=== PATIENT | female | born 1960 | race Caucasian/White ===

== ENCOUNTER 2017-06-02 11:22 | Day surgery (SDC) | payer BC ==
[~2017-06-02] VITALS: Ht 170.2 cm; Wt 96.8 kg
[~2017-06-02 11:22] MED LIST: ACYC400 PO; ALBU90OI61 INH; AMIT10; ASPI325 PO; ATEN50 PO; ATOR10 PO; Aspir-Low81 MG PO; CEPH500 PO; CITA20 PO; DIAZ5 PO; DIPASPER PO; DONE10 PO; DONE5 PO; DOXY100 PO; DULO30 PO; Dyazide 37.5-21 EACH PO; ESCI10 PO; FLUO20; GABA300T24; HYDCHL25 PO; HYDMOR2 PO; LEVSOD100 PO; LEVSOD200 PO; LEVSOD75; LIDO5TP TOP; LIDOCAINE1 EACH TOP; METO10 PO; ONDA4 PO; ONDA4ODT; OXYACE5T PO; PANT40 PO; PREG100; PREG25 PO; PROACE100 PO; PROAIR RESPICL90 MCG; PROC10 PO; PROM25 PO; RXTRAM50 PO; SPIHYD50 PO; Synthroid/Levo0.2 MG; TRAM50 PO; TRIHYD5075; Toprol Xl50 MG PO; Voltaren100 GM TP; Zofran Odt8 MG PO
== END 2017-06-02 13:54 | disposition home or self-care (01) ==
LOC: ORSCSDS 11:22
PROVIDERS: Internal Medicine Gastroenterology
PROC: 0DBN8ZX Excision of Sigmoid Colon, Via Natural or Artificial Opening Endoscopic, Diagnostic (ICD-10-PCS; principal; 2017-06-02 12:45)
PROC: 0DB88ZX Excision of Small Intestine, Via Natural or Artificial Opening Endoscopic, Diagnostic (ICD-10-PCS; principal; 2017-06-02 12:45)
PROC: 0DB68ZX Excision of Stomach, Via Natural or Artificial Opening Endoscopic, Diagnostic (ICD-10-PCS; principal; 2017-06-02 12:45)
DX: R10.13 Epigastric pain (principal); K63.5 Polyp of colon; K64.4 Residual hemorrhoidal skin tags; E03.9 Hypothyroidism, unspecified; Z86.73 Personal history of transient ischemic attack (TIA), and cerebral infarction without residual deficits; J45.909 Unspecified asthma, uncomplicated; Z79.82 Long term (current) use of aspirin; Z87.891 Personal history of nicotine dependence; Z79.899 Other long term (current) drug therapy
CPT/HCPCS: 88305; 88342; J1980; J2405; J7120

== ENCOUNTER 2020-04-04 07:20 | Emergency (ER) | payer MEDICARE, OTHER ==
[~2020-04-04] VITALS: Ht 170.2 cm; Wt 89.4 kg
[2020-04-04] MEDS ORDERED: ACET500 PO (07:50)
[2020-04-04] MEDS ORDERED: PROG100 (07:50)
[2020-04-04] MEDS ORDERED: CLIMARA1 EACH (07:50)
[2020-04-04] MEDS ORDERED: ASPI325 PO (07:50)
[2020-04-04] MEDS ORDERED: LISI5 (07:50)
[2020-04-04] MEDS ORDERED: LEVSOD137 PO (07:51)
[2020-04-04 08:03] LABS: BASOPHILS ABSOLUTE AUTO 0.03 K/mm3 (0.00-0.23); BASOPHILS PERCENT AUTO 0 % (0-2); EOSINOPHILS ABSOLUTE AUTO 0.14 K/mm3 (0.00-0.68); EOSINOPHILS PERCENT AUTO 2 % (0-6); Hematocrit 39.6 % (33.0-51.0); Hemoglobin 12.5 g/dL (11.5-16.0); IMMATURE GRAN ABSOLUTE AUTO 0.01 K/mm3 (0.00-0.10); IMMATURE GRAN PERCENT AUTO 0 % (0-1); LYMPHOCYTES ABSOLUTE AUTO 1.43 K/mm3 (0.84-5.20); LYMPHOCYTES PERCENT AUTO 21 % (21-46); MONOCYTES PERCENT AUTO 6 % (4-13); Mean Corpuscular HGB 30.8 pg (26.0-34.0); Mean Corpuscular HGB Conc 31.6 g/dL (31.5-36.5); Mean Corpuscular Volume 98 fL (80-100); Mean Platelet Volume 9.6 fL (9.1-12.4); NEUTROPHILS ABSOLUTE AUTO 4.88 K/mm3 (1.96-9.15); NEUTROPHILS PERCENT AUTO 71 % (41-73); Platelet Count 225 K/mm3 (150-400); RDW Standard Deviation 43.4 fL (35.1-46.3); Red Blood Cell Count 4.06 M/mm3 (3.80-5.20); White Blood Cell Count 6.89 K/mm3 (4.00-11.30)
[2020-04-04 08:23] LABS: Alanine Aminotransfer (ALT/SGP 17 U/L (12-78); Albumin, Blood 3.5 g/dL (3.4-5.0); Albumin/Globulin Ratio 0.9 (0.8-1.8); Alk Phos 62 U/L (50-136); Anion Gap 8 mmol/L (6-16); Aspartate Aminotrans (AST/SGOT 11 U/L (12-37); Bilirubin, Total 0.5 mg/dL (0.1-1.0); Blood Urea Nitrogen 15 mg/dL (8-24); Bun/Creatinine Ratio 18.8 (12.0-20.0); CO2, Blood 24 mmol/L (21-32); Calcium, Blood 8.5 mg/dL (8.5-10.1); Chloride, Blood 106 mmol/L (98-108); Globulin, Blood 3.7 g/dL (2.2-4.0); Glomerular Filtration Rate >60 (60-); Glucose, Blood 111 mg/dL (70-99); Potassium, Blood 3.4 mmol/L (3.5-5.5); Sodium, Blood 138 mmol/L (136-145); Total Protein, Blood 7.2 g/dL (6.4-8.2)
[2020-04-04 08:30] LABS: C-REACTIVE PROTEIN, EXT RANGE 1.85 mg/dL (0.000-0.300)
[2020-04-04 08:38] LABS: Free Thyroxine 0.82 ng/dL (0.70-1.60)
[2020-04-04 08:40] LABS: Source, Urine Clean Catch
[2020-04-04 08:40] LABS: Thyroid Stimulating Hormone 5.78 uIU/mL (0.360-4.800)
[2020-04-04 08:59] LABS: Bilirubin, Urine Neg (Neg); Blood, Urine 4+ (Neg); Glucose Qualitative, Urine Neg (Neg); Ketones, Urine Neg (Neg); Leukocyte Esterase, Urine 1+ (Neg); Nitrite, Urine Neg (Neg); Protein, Urine 1+ (Neg); Urobilinogen, Urine NORM (Normal)
[2020-04-04 09:03] LABS: Appearance, Urine Clear (Clear); Color, Urine Yellow (P-Yellow)
[2020-04-04 09:05] LABS: Bacteria Mod /hpf; Squamous Epithelial Cells Mod /hpf (Few)
[2020-04-04 09:34] LABS: Influenza A, PCR Negative (NEGATIVE); Influenza B, PCR Negative (NEGATIVE); Resp Syncytial Virus, PCR Negative (NEGATIVE); SARS-Cov-2 (COVID-19) PCR, MMC Negative (NEGATIVE)
[2020-04-04] MEDS ORDERED: PRED20 PO (10:17)
== END 2020-04-04 10:38 | disposition home or self-care (01) ==
LOC: ER 07:20
PROVIDERS: Emergency Medicine
DX: I88.9 Nonspecific lymphadenitis, unspecified (principal); Z20.828 Contact with and (suspected) exposure to other viral communicable diseases; Z79.82 Long term (current) use of aspirin; Z79.899 Other long term (current) drug therapy; Z88.1 Allergy status to other antibiotic agents; Z88.5 Allergy status to narcotic agent; Z91.040 Latex allergy status; Z86.73 Personal history of transient ischemic attack (TIA), and cerebral infarction without residual deficits; Z87.891 Personal history of nicotine dependence
CPT/HCPCS: 0241U; 36415; 71260; 74177; 80053; 81001; 84439; 84443; 85025; 85651; 86140; 86308; 86644; 86645; 87086; 99283-25; Q9967

== ENCOUNTER 2020-04-05 15:10 | Emergency (ER) | payer MEDICARE, OTHER ==
[~2020-04-05] VITALS: Ht 170.2 cm; Wt 87.1 kg
[~2020-04-05 15:10] MED LIST changes: +ACET500 PO; +CLIMARA1 EACH; +LEVSOD137 PO; +LISI5; +PRED20 PO; +PROG100
[2020-04-09 11:11] LABS: B. HENSELAE IGG Negative titer (Neg:<1:320); B. HENSELAE IGM Negative titer (Neg:<1:100); B. QUINTANA IGG Negative titer (Neg:<1:320); B. QUINTANA IGM Negative titer (Neg:<1:100)
== END 2020-04-05 17:15 | disposition home or self-care (01) ==
LOC: ER 15:10
PROVIDERS: Emergency Medicine
DX: R59.0 Localized enlarged lymph nodes (principal); Z88.1 Allergy status to other antibiotic agents; Z88.5 Allergy status to narcotic agent; Z91.040 Latex allergy status; Z87.891 Personal history of nicotine dependence; Z86.73 Personal history of transient ischemic attack (TIA), and cerebral infarction without residual deficits; Z79.52 Long term (current) use of systemic steroids; Z79.899 Other long term (current) drug therapy; Z79.82 Long term (current) use of aspirin
CPT/HCPCS: 86611; 99283

== ENCOUNTER 2020-10-29 10:33 | Day surgery (SDC) | payer MEDICARE, OTHER ==
[~2020-10-29] VITALS: Ht 170.2 cm; Wt 92.6 kg
[~2020-10-29 10:33] MED LIST changes: +ASPIR 8181 MG PO; +DONEPEZIL HCL10 MG PO; +ESTRADIOL1 MG PO; +EUTHYROX137 MCG PO; +FURO20 PO; +KETO60I IM; +LIDO700A20 TOP; +Ondansetron Odt8 MG MM; +PROG100 PO; +Ventolin/Prove6.7 GM INH; +Voltaren100 GM; +ZOLP10 PO
[2020-10-29] MEDS ORDERED: ZOCOR20 MG PO (11:01)
[2020-10-29] MEDS ORDERED: ASPI325 PO (11:02)
== END 2020-10-29 13:35 | disposition home or self-care (01) ==
LOC: ORSCSDS 10:33 → ORD 12:00 → ORSCSDS 12:00
PROVIDERS: Obstetrics & Gynecology
PROC: 0UDB8ZX Extraction of Endometrium, Via Natural or Artificial Opening Endoscopic, Diagnostic (ICD-10-PCS; principal; 2020-10-29 12:00)
DX: N95.0 Postmenopausal bleeding (principal); N84.0 Polyp of corpus uteri; I10 Essential (primary) hypertension; E78.5 Hyperlipidemia, unspecified; J45.909 Unspecified asthma, uncomplicated; Z87.891 Personal history of nicotine dependence; E03.9 Hypothyroidism, unspecified; Z86.73 Personal history of transient ischemic attack (TIA), and cerebral infarction without residual deficits; Z79.899 Other long term (current) drug therapy
CPT/HCPCS: 88305; J0690; J1100; J2250; J2405; J2704; J3010; J7120

== ENCOUNTER → 2021-01-18 | Outpatient (CLI) | payer MEDICARE, OTHER ==
[~2021-01-18] MED LIST changes: +ZOCOR20 MG PO
== END | disposition home or self-care (01) ==
LOC: LAB SHORT 11:13 → LAB 11:13
DX: D22.39 Melanocytic nevi of other parts of face (principal)
CPT/HCPCS: 88305

== ENCOUNTER 2021-06-17 07:02 | Day surgery (SDC) | payer MEDICARE, BC ==
[2021-06-16 15:13] LABS: Bun/Creatinine Ratio 13.2 (12.0-20.0); Creatinine, Blood 1.14 mg/dL (0.40-1.00); Potassium, Blood 4.2 mmol/L (3.5-5.5)
[2021-06-16 15:35] LABS: BASOPHILS ABSOLUTE AUTO 0.06 K/mm3 (0.00-0.23); BASOPHILS PERCENT AUTO 1 % (0-2); EOSINOPHILS ABSOLUTE AUTO 0.16 K/mm3 (0.00-0.68); EOSINOPHILS PERCENT AUTO 3 % (0-6); Hematocrit 41.7 % (33.0-51.0); Hemoglobin 13.4 g/dL (11.5-16.0); IMMATURE GRAN ABSOLUTE AUTO 0.01 K/mm3 (0.00-0.10); IMMATURE GRAN PERCENT AUTO 0 % (0-1); LYMPHOCYTES PERCENT AUTO 28 % (21-46); MONOCYTES ABSOLUTE AUTO 0.47 K/mm3 (0.16-1.47); MONOCYTES PERCENT AUTO 8 % (4-13); Mean Corpuscular HGB 32.4 pg (26.0-34.0); Mean Corpuscular HGB Conc 32.1 g/dL (31.5-36.5); Mean Corpuscular Volume 101 fL (80-100); Mean Platelet Volume 10.3 fL (9.1-12.4); NEUTROPHILS ABSOLUTE AUTO 3.75 K/mm3 (1.96-9.15); NEUTROPHILS PERCENT AUTO 61 % (41-73); Platelet Count 273 K/mm3 (150-400); RDW Coefficient Variation 12.9 % (11.7-14.2); Red Blood Cell Count 4.13 M/mm3 (3.80-5.20); White Blood Cell Count 6.15 K/mm3 (4.00-11.30)
[~2021-06-17] VITALS: Ht 170.2 cm; Wt 93.6 kg
[~2021-06-17 07:02] MED LIST changes: +TRAZ100 PO
--- NOTE | 2021-06-17 12:25 | NUR ---
06/17/21 1225 Ruchi Ochoa GIVEN MO BY MARTA LUX AT 1210
--- NOTE | 2021-06-17 18:49 | NUR ---
SHIFT SUMMARY PT A&OX4, VSS/RA, SAVANNAH PO, PAIN MANAGED WITH PO DILAUDID & TORADOL, STOOD AT BEDSIDE, CRUZ W/STAT LOCK/OFF FLOOR. POD0, 3 DERMABOND, ABD BINDER, PAD DRY/INTACT. WILL REPORT TO ONCOMING NOC RN.
--- NOTE | 2021-06-18 04:11 | NUR ---
SHIFT SUMMARY PT IS POD#1 FOR TOTAL LAPRASCOPIC HYSTERECTOMY. CRUZ IN PLACE AND DRAINING TO GRAVITY, CLEAR YELLOW URINE. PLAN IS TO D/C CRUZ AND REMOVE VAGINAL PACKING AT 0500. IV IN LEFT FOREARM AND LEFT WRIST, INFUSING LR AT 125ML/HR. PT TOLERATING PO JELLO AND SIPPING FROM ROOT BEER. PT STATES SHE DOESN'T FEEL HUNGRY. DENIES NAUSEA/VOMITING. PAIN CONTROLLED WITH TORADOL AND DILAUDID PRN. PT GIVEN UNINTERRUPTED REST FOR 4-5 HOURS, WAS ABLE TO REST. THREE INCISIONS TO ABD, SECURED WITH DERMABOND, ABD BINDER IN PLACE. C/D/I. WILL CONTINUE TO MONITOR.
[2021-06-18 04:20] LABS: BASOPHILS ABSOLUTE AUTO 0.02 K/mm3 (0.00-0.23); BASOPHILS PERCENT AUTO 0 % (0-2); EOSINOPHILS PERCENT AUTO 0 % (0-6); Hematocrit 33.8 % (33.0-51.0); Hemoglobin 10.9 g/dL (11.5-16.0); IMMATURE GRAN ABSOLUTE AUTO 0.03 K/mm3 (0.00-0.10); IMMATURE GRAN PERCENT AUTO 0 % (0-1); LYMPHOCYTES ABSOLUTE AUTO 1.42 K/mm3 (0.84-5.20); LYMPHOCYTES PERCENT AUTO 14 % (21-46); MONOCYTES ABSOLUTE AUTO 0.63 K/mm3 (0.16-1.47); MONOCYTES PERCENT AUTO 6 % (4-13); Mean Corpuscular HGB 32.5 pg (26.0-34.0); Mean Corpuscular HGB Conc 32.2 g/dL (31.5-36.5); Mean Corpuscular Volume 101 fL (80-100); Mean Platelet Volume 10.3 fL (9.1-12.4); NEUTROPHILS ABSOLUTE AUTO 8.45 K/mm3 (1.96-9.15); NEUTROPHILS PERCENT AUTO 80 % (41-73); Platelet Count 202 K/mm3 (150-400); RDW Coefficient Variation 12.8 % (11.7-14.2); RDW Standard Deviation 48.1 fL (35.1-46.3); Red Blood Cell Count 3.35 M/mm3 (3.80-5.20); White Blood Cell Count 10.55 K/mm3 (4.00-11.30)
--- NOTE | 2021-06-18 06:25 | NUR ---
RN REMOVED CRUZ AT 0515. WOUND CARE PERFORMED: REMOVED VAGINAL PACKING. SCANT AMOUNT OF BLOODY DISCHARGE. PT AMBULATED WITH WALKER AND SBA TO BATHROOM, UNABLE TO VOID. AMBULATED BACK TO BED. PT DENIES HUNGER, DECLINES CRACKERS. ABLE TO TOLERATE SIPS OF ROOT BEER WITH PO PAIN MEDICATION. ISO AT BEDSIDE, REPORTS USING IT TWICE DURING THE SHIFT. WILL CONTINUE TO MONITOR. PT ADVANCING TOWARDS GOALS FOR DISCHARGE, NEEDS TO VOID.
[2021-06-18] MEDS ORDERED: DOCU100 PO (11:59)
[2021-06-18] MEDS ORDERED: DULCOLAX400 MG/5 M PO (12:00)
[2021-06-18] MEDS ORDERED: HYDMOR2 PO (12:00)
[2021-06-18] MEDS ORDERED: PROM25 PO (12:01)
[2021-06-18] MEDS ORDERED: SIME80CH PO (12:02)
[2021-06-18] MEDS ORDERED: SENNA LAXATIVE8.6 MG PO (12:02)
--- NOTE | 2021-06-18 13:38 | NUR ---
Pt. was sitting up finishing her lunch. Pt. welcomed my visit and asked me to pull up a chair. Established rapport and exchanged common expereinces of jesse and belief. Pt. verbalized anxiety over variety of personal losses experienced since Covid began. Listen empathetically. Offered emotional support and facilitated a brief life review. Pt. displayed evidence of engagement and reduced stress. Prayed with pt. Pt. verbalized gratitude for prayer and spiritual care visit.
--- NOTE | 2021-06-18 18:17 | NUR ---
PATIENT REPORTS PAIN IS ADEQUATELY CONTROLLED WITH PO MEDS. DENIES NAUSEA. SAVANNAH PO FOOD AND FLUIDS. VOIDING PINK TINGED YELLOW URINE. OLINDA PADS CHANGED X2 THIS SHIFT FOR SMALL AMOUNT BLOODY VAGINAL DRAINAGE..ABD SITES DRY AND INTACT. AMBULATING IN ROOM. PT VERBALIZES UNDERSTANDING OF DISCHARGE INSTRUCTIONS. WAITING FOR TO ARRIVE TO DISCHARGE TO HOME
--- NOTE | 2021-06-18 19:26 | NUR ---
1920 discharged to home with spouse
== END 2021-06-18 19:20 | disposition home or self-care (01) ==
LOC: ORSCMMR 07:02 → SURS 07:02 → ORSCMMR 07:07 → ORD 08:30 → ORSCMMR 08:30 → SURS 13:14 → ORSCMMR 06-18 19:20
PROVIDERS: Obstetrics & Gynecology
PROC: 8E0W4CZ Robotic Assisted Procedure of Trunk Region, Percutaneous Endoscopic Approach (ICD-10-PCS; principal; 2021-06-17 08:30)
PROC: 0UT24ZZ Resection of Bilateral Ovaries, Percutaneous Endoscopic Approach (ICD-10-PCS; principal; 2021-06-17 08:30)
PROC: 0UT74ZZ Resection of Bilateral Fallopian Tubes, Percutaneous Endoscopic Approach (ICD-10-PCS; principal; 2021-06-17 08:30)
PROC: 0JQC0ZZ Repair Pelvic Region Subcutaneous Tissue and Fascia, Open Approach (ICD-10-PCS; principal; 2021-06-17 08:30)
PROC: 0UT94ZZ Resection of Uterus, Percutaneous Endoscopic Approach (ICD-10-PCS; principal; 2021-06-17 08:30)
DX: N95.0 Postmenopausal bleeding (principal); N94.6 Dysmenorrhea, unspecified; I10 Essential (primary) hypertension; N81.6 Rectocele; K66.0 Peritoneal adhesions (postprocedural) (postinfection); Z87.891 Personal history of nicotine dependence; J45.909 Unspecified asthma, uncomplicated; Z79.899 Other long term (current) drug therapy; Z79.82 Long term (current) use of aspirin
CPT/HCPCS: 58571; 57250; S2900; 36415; 80048; 85025; 86850; 86900; 86901; 88307; A9270; J0360; J0690; J1100; J1885; J2250; J2405; J2704; J2710; J2765; J3010; J7120

== ENCOUNTER 2021-08-01 12:21 | Observation (INO) | payer MEDICARE, BC ==
[~2021-08-01] VITALS: Ht 170.2 cm; Wt 90.8 kg
[~2021-08-01 12:21] MED LIST changes: +DOCU100 PO; +DULCOLAX400 MG/5 M PO; -ESTRADIOL1 MG PO; +SENNA LAXATIVE8.6 MG PO; +SIME80CH PO; +[UNRECOGNIZED DRUG - OTHER] TD
[2021-08-01 12:52] LABS: BASOPHILS ABSOLUTE AUTO 0.05 K/mm3 (0.00-0.23); BASOPHILS PERCENT AUTO 1 % (0-2); EOSINOPHILS PERCENT AUTO 3 % (0-6); Hemoglobin 13.1 g/dL (11.5-16.0); IMMATURE GRAN ABSOLUTE AUTO 0.01 K/mm3 (0.00-0.10); IMMATURE GRAN PERCENT AUTO 0 % (0-1); LYMPHOCYTES ABSOLUTE AUTO 2.52 K/mm3 (0.84-5.20); LYMPHOCYTES PERCENT AUTO 36 % (21-46); MONOCYTES PERCENT AUTO 7 % (4-13); Mean Corpuscular Volume 100 fL (80-100); NEUTROPHILS ABSOLUTE AUTO 3.75 K/mm3 (1.96-9.15); NEUTROPHILS PERCENT AUTO 54 % (41-73); Platelet Count 280 K/mm3 (150-400); RDW Coefficient Variation 12.2 % (11.7-14.2); RDW Standard Deviation 45.4 fL (35.1-46.3); White Blood Cell Count 7.03 K/mm3 (4.00-11.30)
[2021-08-01 13:11] LABS: Albumin, Blood 4.3 g/dL (3.4-5.0); Albumin/Globulin Ratio 1.2 (0.8-1.8); Bilirubin, Total 0.5 mg/dL (0.1-1.0); Bun/Creatinine Ratio 17.3 (12.0-20.0); Calcium, Blood 9.6 mg/dL (8.5-10.1); Creatinine, Blood 0.98 mg/dL (0.40-1.00); Globulin, Blood 3.6 g/dL (2.2-4.0); Potassium, Blood 4.4 mmol/L (3.5-5.5); Total Protein, Blood 7.9 g/dL (6.4-8.2)
[2021-08-01] MEDS ORDERED: TESTOSTERONE5000 GM MC (13:54)
[2021-08-01 15:20] LABS: CHOL/HDL RATIO 3.1; Cholesterol 224 mg/dL (50-200); HDL Cholesterol 73 mg/dL (>39); LDL/HDL RATIO 1.6; Low Density Lipoprotein Chol 119 mg/dL (0-110); Triglycerides 160 mg/dL (30-160); Very Low Density Lipoprot Chol 32 mg/dL (6-32)
[2021-08-01] MEDS ORDERED: LISI5 PO (16:57)
--- NOTE | 2021-08-01 18:45 | NUR ---
ADMISSION AND SHIFT SUMMARY NOTE PT AxOx4. PLEASANT AND COOPERATIVE WITH CARE. PT ARRIVED TO MED FLOOR FROM ED FOR ADMIT AT APPROX 1625. PT MED REC AND ADMIT HX COMPLETED. VITALS REVIEWED. CARDIO CONSULT CALLED. PT REPORTED CP SHORTLY AFTER ARRIVAL. MEDS GIVEN PER EMAR WITH REPORTED RELIEF. PT CURRENTLY RESTING IN BED WITH CALL LIGHT IN REACH. DENIES ANY NEEDS AT THIS TIME. CARDIOLOGY EXPECTED IN THE AM.
[2021-08-02 04:41] LABS: Hematocrit 34.2 % (33.0-51.0); Hemoglobin 11.1 g/dL (11.5-16.0); Mean Corpuscular HGB 32.4 pg (26.0-34.0); Mean Corpuscular HGB Conc 32.5 g/dL (31.5-36.5); Mean Corpuscular Volume 100 fL (80-100); Platelet Count 242 K/mm3 (150-400); RDW Coefficient Variation 12.3 % (11.7-14.2); RDW Standard Deviation 44.8 fL (35.1-46.3); Red Blood Cell Count 3.43 M/mm3 (3.80-5.20); White Blood Cell Count 5.87 K/mm3 (4.00-11.30)
[2021-08-02 05:03] LABS: Albumin, Blood 3.5 g/dL (3.4-5.0); Albumin/Globulin Ratio 1.2 (0.8-1.8); Bilirubin, Total 0.4 mg/dL (0.1-1.0); Bun/Creatinine Ratio 17.6 (12.0-20.0); Calcium, Blood 8.6 mg/dL (8.5-10.1); Creatinine, Blood 0.97 mg/dL (0.40-1.00); Potassium, Blood 3.7 mmol/L (3.5-5.5); Total Protein, Blood 6.5 g/dL (6.4-8.2)
--- NOTE | 2021-08-02 10:50 | NUR ---
Echocardiogram completed.
--- NOTE | 2021-08-02 17:25 | NUR ---
DAY SHIFT SUMMARY 60 YR OLD FEMALE PT ADMITTED FOR CHEST PAIN. PT HAS GONE FOR ECHO AND 2 PART STRESS TEST TODAY. ON TELE, RA, FULL CODE. AT BEDSIDE, CURRENTLY. A/O X4 AND INDEPENDENT IN ROOM. NO C/O OF CHEST PAIN TODAY. PT STATES LINGERING EFFECTS OF NITRO WITH HEADACHE AND NAUSEA. MEDICATED PER EMAR. CALL LIGHT WITHIN REACH AND ABLE TO CALL APPROPRIATELY.
--- NOTE | 2021-08-03 03:24 | NUR ---
2245: TELE MONITOR NOTIFIED RN A PATIENT HR OF 30 & A 2ND DEGREE AV BLOCK TYPE II. RN IMMEDIATELY CHECKED ON PT; FOUND HER HAVING EPISODE OF EMESIS. PT GIVEN PO ZOFRAN, VS CHECKED AND WNL. TELE MONITOR REPORT A HR OF SR/65. MD WAS NOTIFIED AND RN WILL PASS THIS EVENT ON TO DAYSINFT NURSE. PT IS NOW RESTING AND NO OTHER ACUTE EVENTS TO REPORT.
[2021-08-03 04:46] LABS: Hematocrit 34.1 % (33.0-51.0); Hemoglobin 11.2 g/dL (11.5-16.0); Mean Corpuscular HGB 32.8 pg (26.0-34.0); Mean Corpuscular HGB Conc 32.8 g/dL (31.5-36.5); Mean Corpuscular Volume 100 fL (80-100); Platelet Count 235 K/mm3 (150-400); RDW Coefficient Variation 12.2 % (11.7-14.2); RDW Standard Deviation 44.9 fL (35.1-46.3); Red Blood Cell Count 3.41 M/mm3 (3.80-5.20); White Blood Cell Count 8.13 K/mm3 (4.00-11.30)
[2021-08-03 05:04] LABS: Albumin, Blood 3.4 g/dL (3.4-5.0); Albumin/Globulin Ratio 1.1 (0.8-1.8); Bilirubin, Total 0.4 mg/dL (0.1-1.0); Creatinine, Blood 0.96 mg/dL (0.40-1.00); Globulin, Blood 3.2 g/dL (2.2-4.0); Potassium, Blood 4.3 mmol/L (3.5-5.5); Total Protein, Blood 6.6 g/dL (6.4-8.2)
--- NOTE | 2021-08-03 05:24 | NUR ---
SHIFT SUMMARY: PT IS A/OX4. TELE: SR/65. PT HAD AN EPISODE OF EMESIS AROUND 2300, PER TELE MONITOR SHE WHENT INTO A 2ND DEGREE AV BLOCK TYPE II W/ A HR OF 30 THAT LASTED FOR 4 SEC. ONCE BACK IN BED SHE WAS IN SR AT 65. NO OTHER CARDIAC EVENTS THIS SHIFT. PT IS A PROBABLE DC TODAY. CALL LIGHT IS WITHIN REACH AND WE'LL CONTINUE TO MONITOR.
--- NOTE | 2021-08-03 11:59 | NUR ---
DISCHARGE SUMMARY DISCHARGE TO HOME. IV AND TELE REMOVED PRIOR TO DISCHARGE. DISCHARGE EDUCATION REVIEWED WITH AND SIGNED BY PATIENT. PT TAKEN TO [facility] VIA WHEELCHAIR WITH PERSONAL BELONGINGS. AT PT SIDE. NO NEW MEDS ORDERED.
== END 2021-08-03 11:24 | disposition home or self-care (01) ==
LOC: ER 12:21 → MEDS 12:22
PROVIDERS: Emergency Medicine; Physician Assistant; ADMIT Internal Medicine
DX: R07.89 Other chest pain (principal); E78.5 Hyperlipidemia, unspecified; E03.9 Hypothyroidism, unspecified; I10 Essential (primary) hypertension; Z87.891 Personal history of nicotine dependence; Z86.73 Personal history of transient ischemic attack (TIA), and cerebral infarction without residual deficits; Z88.5 Allergy status to narcotic agent; Z88.1 Allergy status to other antibiotic agents; Z91.040 Latex allergy status
CPT/HCPCS: 36415; 71045; 71260; 78452; 80053; 80061; 83880; 84443; 84484; 85025; 85027; 85651; 86140; 93005; 93010; 93017; 93246; 93306; A9270; A9500; J1650; J2270; J2550; Q9967

== ENCOUNTER 2022-12-08 16:53 | Observation (INO) | payer MEDICARE, BC ==
[~2022-12-08] VITALS: Ht 170.2 cm; Wt 90.4 kg
[~2022-12-08 16:53] MED LIST changes: +BENADRYL25 MG PO; +Benadryl Itch28.3 G1 TOP; +CLIMARA1 EACH TOP; +DELTASONE20 MG PO; +LISI5 PO; +Prednisone10 MG PO; +TESTOSTERONE5000 GM MC
[2022-12-08 17:34] LABS: BASOPHILS ABSOLUTE AUTO 0.03 K/mm3 (0.00-0.23); BASOPHILS PERCENT AUTO 0 % (0-2); EOSINOPHILS ABSOLUTE AUTO 0.15 K/mm3 (0.00-0.68); EOSINOPHILS PERCENT AUTO 2 % (0-6); Hemoglobin 12.6 g/dL (11.5-16.0); IMMATURE GRAN ABSOLUTE AUTO 0.02 K/mm3 (0.00-0.10); IMMATURE GRAN PERCENT AUTO 0 % (0-1); LYMPHOCYTES ABSOLUTE AUTO 2.36 K/mm3 (0.84-5.20); LYMPHOCYTES PERCENT AUTO 33 % (21-46); MONOCYTES ABSOLUTE AUTO 0.42 K/mm3 (0.16-1.47); MONOCYTES PERCENT AUTO 6 % (4-13); Mean Corpuscular HGB 30.7 pg (26.0-34.0); Mean Corpuscular HGB Conc 33.2 g/dL (31.5-36.5); Mean Corpuscular Volume 93 fL (80-100); Mean Platelet Volume 10.2 fL (9.1-12.4); NEUTROPHILS ABSOLUTE AUTO 4.11 K/mm3 (1.96-9.15); NEUTROPHILS PERCENT AUTO 58 % (41-73); Platelet Count 245 K/mm3 (150-400); RDW Coefficient Variation 11.7 % (11.7-14.2); RDW Standard Deviation 39.6 fL (35.1-46.3); Red Blood Cell Count 4.11 M/mm3 (3.80-5.20); White Blood Cell Count 7.09 K/mm3 (4.00-11.30)
[2022-12-08 17:52] LABS: Albumin, Blood 4.4 g/dL (3.4-5.0); Albumin/Globulin Ratio 1.2 (0.8-1.8); Bilirubin, Total 0.4 mg/dL (0.1-1.0); Bun/Creatinine Ratio 21.3 (12.0-20.0); Calcium, Blood 9.5 mg/dL (8.5-10.1); Creatinine, Blood 0.8 mg/dL (0.40-1.00); Globulin, Blood 3.6 g/dL (2.2-4.0); Potassium, Blood 4.2 mmol/L (3.5-5.5)
--- NOTE | 2022-12-08 21:22 | NUR ---
PT CHART REVIEWED FOR ADMIT
--- NOTE | 2022-12-08 23:45 | NUR ---
ADMIT NOTE; PT ARRIVES FROM THE ED VIA GURNEY. THE PT IS ABLE TO SELF TRANSFER TO THE BED FROM THE GURNEY. THE PT IS AXO X4 AND INDEPENDENT IN THE ROOM. UPON ARRIVAL THE PT HAS NS RUNNING IN TO GRAVITY. THE PT HAS A 1" NITRO PATCH IN PLACE. THE PT REPORTS A 3/10 CHEST PAIN/PRESSURE. PT DENIES THE NEED FOR ANY FURTHER PAIN MEDICATION AT THIS TIME. THE PT DENIES ANY SOB OR N/V AT THIS TIME. CURRENTLY THE PT IS RESTING IN BED WITH THE BED IN THE LOWEST POSITION AND THE CALL LIGHT AT BEDSIDE.
[2022-12-08] MEDS ORDERED: EUTHYROX150 MC1 PO (23:47)
[2022-12-08 23:50] VITALS: BP 142/70
[2022-12-09 05:04] VITALS: BP 126/69
--- NOTE | 2022-12-09 06:30 | NUR ---
SHIFT SUMMARY; NO ACUTE CHANGES OVERNIGHT. THE PT IS AXO X4 AND INDEPENDENT IN THE ROOM. THE PT HAS A NITRO PATCH ON FOR CHEST PAIN. THIS AM THE PT REPORTS NO CHEST PAIN/PRESSURE BUT THAT SHE DOES HAVE A HEADACHE. I OFFERED TO TAKE THE NITRO PATCH OFF BUT THE PT SAYS "SHE PREFERS TO HAVE A HEADACHE RATHER THAN CHEST PAIN". TROPONINS HAVE BEEN TRENDING UP 5,6,7 AND THE MOST RECENT BEING 9. THE PT HAS TELE ON, NSR IN THE 70'S WHILE AWAKE. NSR PACED IN THE 50'S WHILE ASLEEP. THE PT HAS A PACEMAKER THAT PACES HER WHEN HER HEART RATE FALLS BELOW 50 BPM. THE PT OTHERWISE DENIES ANY PAIN, SOB OR N/V. THE PT HAS BEEN SLEEPING IN BED SINCE ADMIT. CURRENTLY THE PT IS SLEEPING IN BED WITH THE BED IN THE LOWEST POSITION AND THE CALL LIGHT AT BEDSIDE. FIRE SAFETY MAINTAINED T/O THE NIGHT.
[2022-12-09 07:36] VITALS: BP 148/58
--- NOTE | 2022-12-09 14:12 | NUR ---
DISCHARGE SUMMARY: PT EDUCATED ON DISCHARGE MEDICATIONS AND INSTRUCTIONS. PT DENIED NEED FOR WC TRANSPORT AND AMBULATED TO POV. STEADY ON FEET. BELONGINGS WITH PT.
== END 2022-12-09 13:56 | disposition home or self-care (01) ==
LOC: ER 16:53 → MEDS 16:54
PROVIDERS: Physician Assistant; ADMIT Family Medicine
DX: R07.89 Other chest pain (principal); Z87.891 Personal history of nicotine dependence; I10 Essential (primary) hypertension; E03.9 Hypothyroidism, unspecified; Z95.0 Presence of cardiac pacemaker; Z88.5 Allergy status to narcotic agent; Z88.1 Allergy status to other antibiotic agents; Z91.040 Latex allergy status
CPT/HCPCS: 36415; 71046; 80053; 83880; 84443; 84484; 85025; 93306; 96374; 96375; 99285-25; A9270; G0378; J2405; J7030

== ENCOUNTER 2024-06-20 11:10 | Emergency (ER) | payer MEDICARE, BC ==
[~2024-06-20] VITALS: Ht 170.2 cm; Wt 91.2 kg
[~2024-06-20 11:10] MED LIST changes: +EUTHYROX150 MC1 PO
[2024-06-20] MEDS ORDERED: TRAZ150T57 PO (11:34)
[2024-06-20] MEDS ORDERED: EUTHYROX125 MC1 PO (11:34)
[2024-06-20] MEDS ORDERED: METOPROLOL SUCC25 MG PO (11:34)
[2024-06-20] MEDS ORDERED: ZOLPIDEM TARTRA10 MG PO (11:35)
[2024-06-20] MEDS ORDERED: ROSUVASTATIN CA20 MG PO (11:35)
[2024-06-20] MEDS ORDERED: DONEPEZIL HCL10 M1 PO (11:35)
[2024-06-20] MEDS ORDERED: ELIQUIS5 M2 PO (11:36)
[2024-06-20] MEDS ORDERED: Ketorolac Tromethamine 30mg Vial IV ONE (11:55)
[2024-06-20] MEDS ORDERED: Ondansetron HCl 2 MG / ML 2ML Vial IV ONE (11:55)
[2024-06-20] MEDS ORDERED: NS 1,000 ML IV SCH (11:55)
[2024-06-20 11:57] LABS: Source, Urine Clean Catch
[2024-06-20 12:03] LABS: Appearance, Urine Clear (Clear); Blood, Urine Neg (Neg); Color, Urine Yellow (P-Yellow); Glucose Qualitative, Urine Neg (Neg); Ketones, Urine 1+ (Neg); Leukocyte Esterase, Urine 1+ (Neg); Nitrite, Urine Neg (Neg); Protein, Urine 2+ (Neg); Specific Gravity, Urine 1.025 (1.003-1.022); Urobilinogen, Urine 2+ (Normal)
[2024-06-20 12:17] LABS: BASOPHILS ABSOLUTE AUTO 0.05 K/mm3 (0.00-0.23); BASOPHILS PERCENT AUTO 1 % (0-2); EOSINOPHILS ABSOLUTE AUTO 0.11 K/mm3 (0.00-0.68); EOSINOPHILS PERCENT AUTO 2 % (0-6); Hematocrit 42.9 % (33.0-51.0); Hemoglobin 13.9 g/dL (11.5-16.0); IMMATURE GRAN ABSOLUTE AUTO 0.01 K/mm3 (0.00-0.10); IMMATURE GRAN PERCENT AUTO 0 % (0-1); LYMPHOCYTES ABSOLUTE AUTO 2.16 K/mm3 (0.84-5.20); LYMPHOCYTES PERCENT AUTO 38 % (21-46); MONOCYTES ABSOLUTE AUTO 0.44 K/mm3 (0.16-1.47); MONOCYTES PERCENT AUTO 8 % (4-13); Mean Corpuscular HGB 30.8 pg (26.0-34.0); Mean Corpuscular HGB Conc 32.4 g/dL (31.5-36.5); Mean Corpuscular Volume 95 fL (80-100); Mean Platelet Volume 10.1 fL (9.1-12.4); NEUTROPHILS ABSOLUTE AUTO 2.97 K/mm3 (1.96-9.15); NEUTROPHILS PERCENT AUTO 52 % (41-73); Platelet Count 269 K/mm3 (150-400); RDW Coefficient Variation 12.1 % (11.7-14.2); RDW Standard Deviation 43.1 fL (35.1-46.3); Red Blood Cell Count 4.52 M/mm3 (3.80-5.20); White Blood Cell Count 5.74 K/mm3 (4.00-11.30)
[2024-06-20 12:25] LABS: Bilirubin, Urine 1+ (Neg)
[2024-06-20 12:32] LABS: Red Blood Cells, Urine 0-2 /hpf (0-2); White Blood Cells, Urine 0-2 /hpf (0-5)
[2024-06-20 12:33] LABS: Amorphous Light (0-Heavy); Bacteria Mod /hpf; Mucus Heavy (0-Heavy); Squamous Epithelial Cells Few /hpf (Few)
[2024-06-20 12:34] LABS: Transitional Epithelial Cells Rare /hpf (0-Rare)
[2024-06-20 12:36] LABS: Albumin, Blood 4.4 g/dL (3.4-5.0); Albumin/Globulin Ratio 1.2 (0.8-1.8); Bilirubin, Total 0.9 mg/dL (0.1-1.0); Bun/Creatinine Ratio 14.6 (12.0-20.0); Creatinine, Blood 0.96 mg/dL (0.40-1.00); Globulin, Blood 3.8 g/dL (2.2-4.0); Total Protein, Blood 8.2 g/dL (6.4-8.2)
[2024-06-20] MEDS ORDERED: Methocarbamol 500 MG Tab PO ONE (13:30)
[2024-06-20] MEDS ORDERED: CEFD300 PO (14:29)
[2024-06-20] MEDS ORDERED: Cefdinir 300 MG Cap PO ONE (14:30)
[2024-06-20] MEDS ORDERED: Morphine Sulfat15 MG PO (14:54)
[2024-06-20 15:00] VITALS: BP 140/71
== END 2024-06-20 15:00 | disposition home or self-care (01) ==
LOC: ER 11:10
PROVIDERS: Student in an Organized Health Care Education/Training Program
DX: N12 Tubulo-interstitial nephritis, not specified as acute or chronic (principal); E78.5 Hyperlipidemia, unspecified; Z87.891 Personal history of nicotine dependence; Z86.73 Personal history of transient ischemic attack (TIA), and cerebral infarction without residual deficits; Z79.899 Other long term (current) drug therapy; Z88.1 Allergy status to other antibiotic agents; Z88.5 Allergy status to narcotic agent; Z91.040 Latex allergy status
CPT/HCPCS: 71046; 74177; 80053; 81001; 83690; 85025; 85379; 87086; 96374-59; 96375; 99284-25; A9270; J1885; J2405; J7030; Q9967

== ENCOUNTER → 2025-01-23 | Outpatient (CLI) | payer MEDICARE, BC ==
[~2025-01-23] MED LIST changes: +CEFD300 PO; +DONEPEZIL HCL10 M1 PO; +ELIQUIS5 M2 PO; +EUTHYROX125 MC1 PO; +METOPROLOL SUCC25 MG PO; +Morphine Sulfat15 MG PO; +ROSUVASTATIN CA20 MG PO; +TRAZ150T57 PO; +ZOLPIDEM TARTRA10 MG PO
[2025-01-26 18:51] LABS: ANTI-NUCLEAR AB ANA,IGG ELISA None Detected (None Detected)
== END ==
LOC: LAB 11:40 → LAB SHORT 11:40
PROVIDERS: Nurse Practitioner Family
DX: M13.0 Polyarthritis, unspecified (principal)
CPT/HCPCS: 85651; 86430